=== PATIENT | male | born 1975 | race Caucasian/White ===

== ENCOUNTER 2016-11-02 23:04 | Emergency (ER) | payer BC ==
[2016-11-02 23:30] VITALS: TEMP 98.3; BMI 22.2
[2016-11-03 00:36] LABS: AUTOMATED BASOPHIL 0.8 % (0-2); AUTOMATED EOSINOPHIL 3.6 % (0-5); AUTOMATED LYMPH 24.3 % (17-44); AUTOMATED MONOCYTE 4.4 % (3-10); AUTOMATED NEUTROPHIL 66.9 % (45-76); MPV 7.4 fL (7.4-10.4)
[2016-11-03 00:51] LABS: BLOOD UREA NITROGEN 8 MG/DL (9-20); CALCIUM 9.2 MG/DL (8.4-10.2); CALCULATED OSMOLALITY 266 MOs/Kg (270-290); CHLORIDE 101 mEq/L (98-107); GLUCOSE 90 MG/DL (70-99); SODIUM LEVEL 139 mEq/L (137-146); TOTAL PROTEIN 7.3 G/DL (6.3-8.2)
[2016-11-03] MEDS ORDERED: IBUPROFEN 800 MG TAB PO ONE (01:03)
[2016-11-03 01:07] LABS: PARTIAL THROMB. TIME 25.2 SEC (22-35)
--- NOTE | 2016-11-03 01:23 | DIRPT ---
CLINICAL DATA: Left-sided chest pain for 3 hours. Pain radiates into left arm. Chest heaviness. EXAM: PORTABLE CHEST 1 VIEW COMPARISON: None. FINDINGS: The cardiomediastinal contours are normal. Suspect mild hyperinflation. Biapical pleural parenchymal scarring. Pulmonary vasculature is normal. No consolidation, pleural effusion, or pneumothorax. No acute osseous abnormalities are seen. IMPRESSION: Mild hyperinflation with biapical pleural parenchymal scarring. No acute process is seen. Electronically Signed By: Gwen Grant M.D. On: 11/03/2016 01:20
--- NOTE | 2016-11-03 01:56 | EDPRACDOC ---
- General Information Chief Complaint: Chest Pain Stated Complaint: BREATHING DIFFICULTY, LT ARM PAIN Information Source: Patient Mode of Arrival: Car Home Medications: Home Medications No Home Medications 11/03/16 Allergies/Adverse Reactions: Allergies Allergy/AdvReac Type Severity Reaction Status Date / Time No Known Allergies Allergy Verified 11/03/16 00:09 - History of Present Illness Onset: 3 hours HPI: C/o left side rib pain, relentless cough and SOB starting at 10pm. Pt states he cannot inhale deeply because of pain, and feels like he is SOB. Moving left arm causes pain in ribs. Denies CP, fever, N/V/D. Hx of COPD. + smoker Chest Pain Location: Reports: Other (left ribs) Pain Radiation: Reports: None Symptoms Occur: Reports: Suddenly (possible) Cardiac Risk Factors: Reports: Smoker, Family History Cardiac History of: Reports: None PE Risk Factors: Reports: None Medications within 24 Hours: Reports: None Prehospital Care: Reports: None Pain Came On: Reports: Suddenly Pain Description: Reports: Heavy Pain Severity: Moderate Pain Worsens With: Reports: Exertion, Coughing, Breathing, Movement Pain Improves With: Reports: Rest Associated Signs and Symptoms: Reports: SOB ED Past Medical History - History Reviewed Yes Nurses notes reviewed and agree except as marked - Patient Medical History Respiratory History: Reports: COPD Psychological History: Denies: Depression - Social Medical History Smoking Status: Heavy tobacco smoker (5 or more cigarettes/day or daily pipe/ cigar) EDM Review of Systems - Review of Systems ROS Negative Except as Marked: Yes All systems reviewed and were negative except as marked Respiratory: Cough, Shortness of Breath - Physical Exam Constitutional: No apparent distress, Alert Oriented to: Time, Person, Place Last recorded Vital Signs: Last Vital Signs Temp 98.3 F 11/02/16 23:11 Pulse 79 11/02/16 23:33 Resp 20 11/02/16 23:25 BP 128/75 11/02/16 23:25 Pulse Ox 98 11/02/16 23:25 Oxygen Pulse Oxygen Saturation 98 O2 Device Room Air Oxygen Flow Rate Fraction of Inspired Oxygen ( FIO2) - HEENT Head: Normal Eye Exam: negative: Conjunctival Injection, Scleral Icterus Oropharynx: negative: Drooling TMJ: Normal Nose: No Symptoms Reported Neck: Normal - Respiratory/Cardiovascular Respiratory: Normal - CTA Cardiovascular: Normal - GI Tenderness: Non tender - Musculoskeletal Back: Normal Extremities: Normal - Integumentary Skin: Normal - Neurologic Mood Description: Normal Thought: Coherent ED Chest Pain Exam - Respiratory/Cardiovascular Respiratory: Normal - CTA Cardiovascular/Chest: Normal Radial Pulse: Normal Pedal Pulse: Normal Edema: negative: 1+, 2+, 3+, 4+, 5, 6 Chest Palpation: Reproduces Pain - Action ASA given in the ED: No - Results 11/03/16 00:22 11/03/16 00:22 WBC 12.9 xk/uL (3.8-10.8) H 11/03/16 00:22 RBC 4.68 xM/uL (4.70-6.10) L 11/03/16 00:22 Hgb 15.1 g/dL (14.0-18.0) 11/03/16 00:22 Hct 43.1 % (42-52) 11/03/16 00:22 MCV 92 fL (80-94) 11/03/16 00:22 MCH 32.3 pg (27-32) H 11/03/16 00:22 MCHC 35.1 g/dl (33-36) 11/03/16 00:22 RDW 12.9 % (11.5-14.5) 11/03/16 00:22 Plt Count 182 xk/uL (130-400) 11/03/16 00:22 MPV 7.4 fL (7.4-10.4) 11/03/16 00:22 Neut % (Auto) 66.9 % (45-76) 11/03/16 00:22 Lymph % (Auto) 24.3 % (17-44) 11/03/16 00:22 [place] % (Auto) 4.4 % (3-10) 11/03/16 00:22 Eos % (Auto) 3.6 % (0-5) 11/03/16 00:22 Baso % (Auto) 0.8 % (0-2) 11/03/16 00:22 Absolute Neuts (auto) 8.51 xk/uL (1.7-8.2) H 11/03/16 00:22 Absolute Lymphs (auto) 3.10 xk/uL (0.65-4.75) 11/03/16 00:22 PT 10.0 SEC (9.2-11.2) 11/03/16 00:22 INR 1.0 11/03/16 00:22 APTT 25.2 SEC (22-35) 11/03/16 00:22 Sodium 139 mEq/L (137-146) 11/03/16 00:22 Potassium 3.8 mEq/L (3.5-5.1) 11/03/16 00:22 Chloride 101 mEq/L (98-107) 11/03/16 00:22 Carbon Dioxide 22 mMOL/L (22-33) 11/03/16 00:22 Anion Gap 20 mEq/L (8-16) H 11/03/16 00:22 BUN 8 MG/DL (9-20) L 11/03/16 00:22 Creatinine 0.70 MG/DL (0.66-1.25) 11/03/16 00:22 Estimated GFR (MDRD) > 60 mL/min (>=60) 11/03/16 00:22 Glucose 90 MG/DL (70-99) 11/03/16 00:22 Calculated Osmolality 266 MOs/Kg (270-290) L 11/03/16 00:22 Calcium 9.2 MG/DL (8.4-10.2) 11/03/16 00:22 Total Bilirubin 0.3 MG/DL (0.2-1.3) 11/03/16 00:22 AST 34 IU/L (17-59) 11/03/16 00:22 ALT 40 IU/L (21-72) 11/03/16 00:22 Alkaline Phosphatase 60 IU/L (38-126) 11/03/16 00:22 Troponin I < 0.01 ng/mL (<.04) 11/03/16 00:22 Bfr-A-Elzvqfkqefp Pept 34 pg/mL (0-450) 11/03/16 00:22 Total Protein 7.3 G/DL (6.3-8.2) 11/03/16 00:22 Albumin 4.4 G/DL (3.5-5.0) 11/03/16 00:22 Lab Results 11/03/16 11/03/16 11/03/16 00:22 00:22 00:22 WBC 12.9 H RBC 4.68 L Hgb 15.1 Hct 43.1 MCV 92 MCH 32.3 H MCHC 35.1 RDW 12.9 Plt Count 182 MPV 7.4 Neut % (Auto) 66.9 Lymph % (Auto) 24.3 [place] % (Auto) 4.4 Eos % (Auto) 3.6 Baso % (Auto) 0.8 Absolute Neuts (auto) 8.51 H Absolute Lymphs (auto) 3.10 PT 10.0 INR 1.0 APTT 25.2 Sodium 139 Potassium 3.8 Chloride 101 Carbon Dioxide 22 Anion Gap 20 H BUN 8 L Creatinine 0.70 Estimated GFR (MDRD) > 60 Glucose 90 Calculated Osmolality 266 L Calcium 9.2 Total Bilirubin 0.3 AST 34 ALT 40 Alkaline Phosphatase 60 Troponin I < 0.01 Wgv-[id number]-Bacafmbxkxa Pept 34 Total Protein 7.3 Albumin 4.4 Laboratory Results - last 24 hr 11/03/16 11/03/16 11/03/16 00:22 00:22 00:22 WBC 12.9 H RBC 4.68 L Hgb 15.1 Hct 43.1 MCV 92 MCH 32.3 H MCHC 35.1 RDW 12.9 Plt Count 182 MPV 7.4 Neut % (Auto) 66.9 Lymph % (Auto) 24.3 [place] % (Auto) 4.4 Eos % (Auto) 3.6 Baso % (Auto) 0.8 Absolute Neuts (auto) 8.51 H Absolute Lymphs (auto) 3.10 PT 10.0 INR 1.0 APTT 25.2 Sodium 139 Potassium 3.8 Chloride 101 Carbon Dioxide 22 Anion Gap 20 H BUN 8 L Creatinine 0.70 Estimated GFR (MDRD) > 60 Glucose 90 Calculated Osmolality 266 L Calcium 9.2 Total Bilirubin 0.3 AST 34 ALT 40 Alkaline Phosphatase 60 Troponin I < 0.01 Dxq-T-Xgarjlgpejg Pept 34 Total Protein 7.3 Albumin 4.4 Laboratory Results 11/03/16 00:22 11/03/16 00:22 - EKG EKG #1 EKG Time: 23:29 -: Yes EKG interpreted by me Rate: bpm: 79 Rhythm: NSR ST: Normal - Additional Information Pt states his SOB is from pain with deep inhalation, and that he has been coughing very hard recently, to the point where he is gagging. The rib pain is very reproducible by palpating the rib area. Decision Time to Discharge: 02:07 - Departure Disposition: Home Condition: Stable Final Diagnosis: Rib pain on left side Instructions: Chest Pain (ED), Chest Wall Pain Education/Counseling Given To: Patient Education/Counseling Given Regarding: Diagnosis, Treatment, Prognosis, Follow Up Referrals: Moe Morales MD [Staff Physician] - One Week Additional Instructions: Follow up with primary care provider. Take motrin for pain and inflammation. return to ED for any new or worsening symptoms.
[2016-11-03 03:06] VITALS: PULSE 85
[2016-11-03 03:44] VITALS: BP 114/74
== END 2016-11-03 03:44 | disposition home or self-care (01) ==
LOC: ED 23:04
DX: R07.81 Pleurodynia (principal); J44.9 Chronic obstructive pulmonary disease, unspecified; F17.200 Nicotine dependence, unspecified, uncomplicated; R06.02 Shortness of breath
CPT/HCPCS: 36415; 71010; 80053; 83880; 84484; 85025; 85610; 85730; 93005; 99285; J3490